=== PATIENT | male | born 1955 | race Caucasian/White ===

== ENCOUNTER 2024-01-03 09:41 | Emergency (ER) | payer MEDICARE, SELFPAY ==
[2024-01-03 09:40] VITALS: BP 140/77; PULSE 44; RESP 16; TEMP 36.6; O2SAT 99
--- NOTE | 2024-01-03 09:50 | ECG_ITS ---
Test Date: 2024-01-03 09:54:06 Measurements Intervals [place] Rate: 43 P: 41 CA: 213 QRS: 12 QRSD: 102 T: 13 QT: 495 QTc: 420 Interpretive Statements SINUS BRADYCARDIA WITH FIRST DEGREE AV BLOCK OTHERWISE UNREMARKABLE ECG No previous ECG available for comparison Electronically Signed On 01-03-2024 15:22:07 CDT by Mil Eng M.D.
[2024-01-03 10:10] LABS: Basophils Percent Auto 0.6 % (0.2-1.2); Eosinophils Absolute Auto 0.1 K/mm3 (0-0.3); Hematocrit 39.5 % (42.0-52.0); Hemoglobin 13.7 g/dL (14.0-18.0); Immature Granulocyte Absolute 0.05 K/mm3 (0.00-0.031); Immature Granulocyte Percent A 0.8 % (0-0.5); Lymphocytes Absolute Auto 0.98 K/mm3 (0.9-3.2); Lymphocytes Percent Auto 15.7 % (18.3-44.2); Mean Corpuscular HGB Conc 34.7 g/dl (32-36); Mean Corpuscular Hemoglobin 31.8 pg (26-34); Mean Corpuscular Volume 91.6 fl (80-100); Mean Platelet Volume 10.4 fl (7.4-10.4); Monocytes Absolute Auto 0.4 K/mm3 (0.1-0.6); Monocytes Percent Auto 6.1 % (2.6-8.5); Neutrophils Absolute Auto 4.7 K/mm3 (1.3-6.7); Neutrophils Percent Auto 75.8 % (45.5-73.1); Platelet Count Result 231 k/mm3 (150-375); Red Blood Count 4.31 M/mm3 (4.6-6.20); Red Cell Distribution Width 12.1 % (11.5-14.5); White Blood Count 6.2 K/mm3 (4.5-10.0)
[2024-01-03] MEDS: MECLIZINE HCL 25 MG TABLET PO (10:13)
[2024-01-03] MEDS: ONDANSETRON INJ 4 MG/2 ML VIAL IV PUSH (10:13)
--- NOTE | 2024-01-03 10:15 | ED.DIZZY ---
HPI - Dizziness General Chief Complaint: Dizziness Stated Complaint: DIZZY History of Present Illness HPI Narrative: 68-year-old male present to the emergency department for evaluation of acute onset of vertigo with associated nausea and vomiting. Patient does take rivastigmine and had previously only been on the patch but today he switched to the pills. Patient took his 1st pill at approximately 8:00 a.m. and only had a small breakfast, the pulse was to be taken with food. Approximately 9:00 a.m. patient had onset of nausea and vomiting, patient did not actually have emesis but he did have dry heaves. Patient did bent over the toilet for the dry heaves. Patient states after bending over he had onset of dizziness which made him diuretic and further nauseous. 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 Related Data Allergies Allergy/AdvReac Type Severity Reaction Status Date / Time No Known Allergies Allergy Verified 01/03/24 09:54 Review of Systems Review of Systems: All systems reviewed & are unremarkable except as noted in HPI and below Exam Narrative: APPEARANCE: Well appearing, no pain, no distress, well-nourished. HEAD: normocephalic, atraumatic. EYES: PERRLA/EOMI, conjunctivae clear. NOSE: Normal no drainage EARS:TMS clear with good light reflex. THROAT: Pharynx clear, no exudate. NECK: Supple. No adenopathy, no masses. RESPIRATORY: Airway patent, respirations nonlabored. Clear to auscultation bilaterally, no rales, rhonchi, wheezing. CARDIOVASCULAR: Regular rate and rhythm without murmurs rubs or gallops. ABDOMINAL: Soft, nontender, nondistended, normal bowel sounds MUSCULOSKELETAL: Moves all extremities. Strength/ROM intact, No edema, No calf tenderness. NEURO: Vertigo symptoms worsen with open his eyes and movement, vertigo symptoms improved with resting. No other neurologic deficit Course Course Emergency Course: Patient felt improved with treatment was discharged home with a diagnosis of benign positional vertigo Vital Signs Vital signs: Vital Signs Temperature 97.8 F 01/03/24 09:40 Pulse Rate 44 L 01/03/24 09:40 Respiratory Rate 16 01/03/24 09:40 Blood Pressure 140/77 01/03/24 09:40 Pulse Oximetry 99 01/03/24 09:40 Oxygen Delivery Room Air 01/03/24 09:40 Temperature 97.9 F 01/03/24 13:02 Pulse Rate 53 L 01/03/24 13:02 Respiratory Rate 13 01/03/24 13:02 Blood Pressure 137/71 01/03/24 13:02 Pulse Oximetry 99 01/03/24 13:02 Oxygen Delivery Room Air 01/03/24 09:40 MDM - Dizziness MDM Narrative Medical decision making narrative: 68-year-old male presenting emergency department for evaluation of acute onset of vertigo symptoms. Patient initially had onset of nausea possibly from a new medication and then after the nausea and dry heaving patient had onset vertigo. Vertigo was improved with meclizine and was further improve with Valium. Patient was able ambulate at his baseline. Patient denies any vision changes denies any associated numbness or weakness. Patient is afebrile with no leukocytosis and a stable hemoglobin. No acute electrolyte abnormalities. Urine was negative for infection. Patient will be provided medications for vertigo and for nausea control for home. Patient was encouraged of close follow-up with primary care physician and to help determine if this was a adverse reaction to his rivastigmine Differential Diagnosis Differential diagnosis: Likely adverse reaction to drug, benign paroxysmal positional vertigo, orthostatic hypotension, cerebrovascular accident, acute vestibular neuronitis and transient cerebral ischemia Lab Data Attestation: I reviewed the patient's lab results. 01/03/24 10:03 01/03/24 10:03 Labs: Lab Results 01/03/24 01/03/24 Range/Units 10:03 11:11 WBC 6.2 (4.5-10.0) K/mm3 RBC 4.31 L (4.6-6.20) M/mm3 Hgb 13.7 L (14.0-18.
[2024-01-03] MEDS: SODIUM CHLORIDE 0.9% IV 500 ML 999 ML IV CONT (10:20)
[2024-01-03 10:22] LABS: Alanine Aminotransferase 37 U/L (6-50); Albumin Level 3.9 g/dL (3.5-5.1); Alkaline Phosphatase 88 U/L (38-126); Anion Gap 7 mmol/L (4-12); Aspartate Amino Transferase 39 U/L (17-59); Bilirubin,Total 0.5 mg/dL (0.2-1.3); Blood Urea Nitrogen 21 mg/dL (9-20); Calcium 9.1 mg/dL (8.4-10.2); Carbon Dioxide 22 mmol/L (22-30); Chloride 109 mmol/L (98-107); Estimated CRCL calculation 81 ml/min; Estimated Glomerular Filt Rate > 60; Glucose 155 mg/dL (65-110); Lipase 63 U/L (23-300); Potassium 3.5 mmol/L (3.4-5.0); Sodium 138 mmol/L (137-145)
[2024-01-03 11:06] VITALS: BP 132/80; PULSE 52; RESP 12; O2SAT 100
[2024-01-03 11:18] LABS: Appearance Urine Clear (Clear); Bilirubin Urine Negative (Negative); Blood Urine Negative (Negative); Color Urine Yellow (Yellow); Glucose Urine UA Negative (Negative); Ketones Urine Negative (Negative); Leukocyte Esterase Ur Negative LEU/UL (Negative); Nitrate Urine Negative (Negative); Protein Urine Negative (Negative); Specific Grav Ur 1.014 (1.001-1.035); Urobilinogen Urine 0.2 mg/dL (<2.0)
[2024-01-03 11:20] LABS: Add Urine Microscopic? NO
[2024-01-03] MEDS: diazePAM (*CRX) 2 MG TABLET PO (12:25)
[2024-01-03] MEDS: METOCLOPRAMIDE HCL INJ 10 MG/2 ML VIAL IV PUSH (12:26)
[2024-01-03 12:31] VITALS: BP 139/75; PULSE 55; RESP 14; O2SAT 96
[2024-01-03 13:02] VITALS: BP 137/71; PULSE 53; RESP 13; TEMP 36.6; O2SAT 99
--- NOTE | 2024-01-03 13:07 | PC.NURSE ---
ambulated in [place] without difficulty, gait steady. Reports just tired
== END 2024-01-03 13:38 | disposition home or self-care (01) ==
PROVIDERS: Emergency Provider Emergency Medicine
DX: H81.10 Benign paroxysmal vertigo, unspecified ear (principal); R00.1 Bradycardia, unspecified
CPT/HCPCS: 36415; 80053; 81003; 83690; 83735; 84443; 85025; 93005; 96361; 96374; 96375; 99284; A9270; J2405; J2765; J7040